=== PATIENT | male | born 1965 | race Hispanic/Latino ===

== ENCOUNTER 2019-12-06 14:44 | Outpatient (CLI) | payer OTHER ==
[2019-12-06 15:16] LABS: #Basophils 0.1 thou/uL (0.0-0.2); #Eosinphils 0.7 thou/uL (0.0-0.7); #Monocytes 0.5 thou/uL (0.11-0.59); #Neutrophils 4.1 thou/uL (1.40-6.50); %Basophils 1.2 % (0.0-1.0); %Eosinophils 8.9 % (0.0-10.0); %Lymphocytes 27.3 % (21.0-51.0); %Monocytes 7.1 % (0.0-10.0); %Neutrophils 55.5 % (42.0-75.0); Hemoglobin 15.4 g/dL (14.0-18.0); Mean Corpuscular HGB CONC 34.8 g/dL (32.0-36.0); Mean Corpuscular Hemoglobin 30.1 pg (27.0-31.0); Mean Corpuscular Volume 86.6 fL (78.0-98.0); Mean Platelet Volume 8.8 fL (7.4-10.4); Platelet Count 218 thou/uL (130-400); RBC Distribution Width 11.9 % (11.5-14.5); White Blood Cell (WBC) Count 7.4 thou/uL (4.8-10.8)
[2019-12-06 15:53] LABS: ALT (SGPT) 28 U/L (8-55); AST (SGOT) 17 U/L (5-34); Albumin 4.6 g/dL (3.5-5.0); Alkaline Phosphatase 105 U/L (40-110); Anion Gap 12 mmol/L (10-20); BUN (Urea Nitrogen) 17 mg/dL (8.4-25.7); Bilirubin, Total 0.8 mg/dL (0.2-1.2); Calc. Creatinine Clearance 0 mL/min (70-130); Calcium 9.8 mg/dL (7.8-10.44); Carbon Dioxide 28 mmol/L (22-29); Chloride 101 mmol/L (98-107); Estimated GFR-MDRD 65; Globulin 3.2 g/dL (2.4-3.5); Glucose 136 mg/dL (70-105); Protein, Total 7.8 g/dL (6.0-8.3); Sodium 137 mmol/L (136-145)
== END 2019-12-06 14:45 | disposition home or self-care (01) ==
LOC: LABBT 14:44
PROVIDERS: ATTEND Internal Medicine Cardiovascular Disease
DX: Z01.812 Encounter for preprocedural laboratory examination (principal); I42.9 Cardiomyopathy, unspecified; I21.9 Acute myocardial infarction, unspecified
CPT/HCPCS: 80053; 85025

== ENCOUNTER 2019-12-07 05:53 | Inpatient (IN) | payer OTHER ==
[2019-12-06 15:21] VITALS: BMI 32.7
[2019-12-07] MEDS ORDERED: Heparin 10,000 UNITS/1 ML VIAL ONE (06:31)
[2019-12-07] MEDS ORDERED: Fentanyl 100 MCG/2 ML VIAL ONE (07:01)
[2019-12-07] MEDS ORDERED: Midazolam HCl 2 mg/2 ml Vial ONE (07:01)
[2019-12-07] MEDS ORDERED: Protamine Sulfate 50 MG/5 ML VIAL ONE (07:22)
[2019-12-07] MEDS ORDERED: EPINEPHrine 1 MG/ML AMP ONE (07:40)
[2019-12-07] MEDS ORDERED: Albumin 5% 500 ML ONE (07:40)
[2019-12-07] MEDS ORDERED: Dexamethasone 4 mg/ml Vial ONE (07:40)
[2019-12-07] MEDS ORDERED: Bupivacaine PF 0.5% 30 ML VIAL ONE (07:40)
[2019-12-07] MEDS ORDERED: Communication Order-Pharmacy FS SCH (07:57)
[2019-12-07] MEDS ORDERED: Heparin 10,000 UNITS/1 ML VIAL 30,000 UNITS in Sodium Chloride 0.9% 1,000 ML FS SCH (08:00)
[2019-12-07] MEDS ORDERED: Midazolam HCl 5 mg/5 ml Vial ONE (08:29)
[2019-12-07] MEDS ORDERED: Fentanyl 250 MCG/5 ML VIAL ONE ×2 (08:29)
--- NOTE | 2019-12-07 08:29 | CON ---
DATE OF CONSULTATION: HISTORY OF PRESENT ILLNESS: Mr. Baez is a 54-year-old gentleman, who works as a nurse technician, who initially presented to Dr. Arteaga on November 17 with a history of longstanding chest pain. He had an echocardiogram performed at that time, showed an ejection fraction of 30%. He was started on multiple new medicines. He is diabetic and takes metformin. He was started on lisinopril, statin, carvedilol, and an aspirin at that time. He also was given a LifeVest. He was followed up on 11/29 and had recommendations made for cardiac catheterization, which he underwent today. This shows severe multifocal 3-vessel disease. Potential bypassable targets included LAD, diagonal, ramus and PDA. His OM system is unbypassable. His EKG shows old anterior infarct ST-elevation anteriorly, Q-waves anteriorly and inferiorly. PAST MEDICAL HISTORY: 1. Hypertension. 2. Dyslipidemia. 3. Diabetes mellitus. 4. Coronary artery disease. 5. Status post myocardial infarction. PAST SURGICAL HISTORY: Hernia surgery in 2007. ALLERGIES: NONE. CURRENT MEDICATIONS: 1. Aspirin 81 mg daily. 2. Lasix 40 mg daily. 3. Coreg 3.125 mg b.i.d. 4. Lisinopril 20 mg daily. 5. Atorvastatin 40 mg at bedtime. 6. Metformin 850 mg b.i.d. 7. Glipizide ER 2.5 mg daily. SOCIAL HISTORY: He works as a nurse technician. He does not use tobacco. 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 VITAL SIGNS: His heart rate is 80, blood pressure is 132/44, and oxygen saturation is 96% on room air. HEENT: Sclerae nonicteric. Pupils equal and round bilaterally. NECK: Supple without bruit. CHEST: Clear bilaterally. HEART: Rhythm is regular. ABDOMEN: Soft and nontender. EXTREMITIES: No edema. ASSESSMENT AND PLAN: For emergency coronary artery bypass grafting, risks, benefits and options have been discussed with him through an workforce services representative. Plan forsurgery as soon as OR is ready. Job ID: [id number]
[2019-12-07 08:31] LABS: Hemoglobin A1c 9.4 % (4.0-6.0)
[2019-12-07] MEDS ORDERED: Norepinephrine 4 MG/4 ML VIAL ONE ×2 (08:40→08:41)
[2019-12-07] MEDS ORDERED: Nitroglycerin 50 MG/250 ML BOT 250 ML ONE (08:41)
--- NOTE | 2019-12-07 08:46 | RAD ---
FRONTAL RADIOGRAPH CHEST: Date: 12/07/2019 HISTORY: Evaluate chest prior to open heart surgery. FINDINGS: Supine imaging limits assessment for pneumothorax and pleural fluid. No focal consolidation or alveol ar edema. IMPRESSION: No acute findings. POS: NUSRAT
[2019-12-07] MEDS ORDERED: Sodium Chloride 0.9% 20 ML ONE (08:53)
[2019-12-07] MEDS ORDERED: Rocuronium Bromide 10 MG/ML (10ML VIAL) ONE (09:13)
[2019-12-07] MEDS ORDERED: Calcium Chloride 1 GM/10 ML Abboject SYRINGE ONE (09:13)
[2019-12-07] MEDS ORDERED: Heparin 30,000 units/30 ml VIAL ONE (09:13)
[2019-12-07] MEDS ORDERED: Cardioplegic Soln 1,000 ML BAG ONE (09:13)
[2019-12-07] MEDS ORDERED: Magnesium Sulfate 1 GM/2 ML VIAL ONE (09:13)
[2019-12-07] MEDS ORDERED: PROPOFOL 200 MG/20 ML VIAL ONE (09:13)
[2019-12-07] MEDS ORDERED: Lidocaine 2% PF 5 ML VIAL ONE (09:13)
[2019-12-07] MEDS ORDERED: Aminocaproic Acid 5 GM/20 ML VIAL ONE (09:13)
[2019-12-07] MEDS ORDERED: Succinylcholine Chloride 20 MG/ML 10 ml SYRINGE FS ONE (09:13)
[2019-12-07] MEDS ORDERED: Papaverine 60 MG/2 ML VIAL ONE (09:13)
[2019-12-07] MEDS ORDERED: Sodium Bicarb 50 MEQ/50 ML Abboject 8.4% SYRINGE ONE (09:13)
[2019-12-07] MEDS ORDERED: Potassium Chloride 60 MEQ/30 ML VIAL ONE (09:13)
[2019-12-07] MEDS ORDERED: Heparin 5,000 UNITS/ML VIAL ONE (09:13)
[2019-12-07] MEDS ORDERED: Protamine Sulfate 250 MG/25 ML VIAL ONE (09:13)
[2019-12-07] MEDS ORDERED: Thrombin 5000 UNITS/5 ML VIAL ONE (09:13)
[2019-12-07] MEDS ORDERED: Vecuronium 10 MG VIAL ONE (09:13)
[2019-12-07] MEDS ORDERED: Insulin Regular 300 UNITS/3 ML VIAL ONE (09:19)
[2019-12-07] MEDS ORDERED: PHENYLEPHRINE-NS 100 MCG/ML 10 ML SYRINGE ONE ×2 (10:56→12:22)
[2019-12-07] MEDS ORDERED: Milrinone 10 MG/10 ML VIAL ONE (11:07)
[2019-12-07] MEDS ORDERED: Ketamine 50 MG/ML (10ML VIAL) ONE (12:22)
[2019-12-07] MEDS ORDERED: Ondansetron PF 4 MG/2 ML Vial IVP PRN (12:39)
[2019-12-07] MEDS ORDERED: Fentanyl 100 MCG/2 ML VIAL SLOW IVP PRN (12:39)
[2019-12-07] MEDS ORDERED: Hetastarch 6% 500 ML 500 ML IVPB PRN (12:39)
[2019-12-07] MEDS ORDERED: Guaifenesin DM 100-10/5 ML UDCUP PO PRN (12:39)
[2019-12-07] MEDS ORDERED: Bisacodyl 5 MG TAB PO PRN (12:39)
[2019-12-07] MEDS ORDERED: Morphine 2 MG/ML SYRINGE SLOW IVP PRN (12:39)
[2019-12-07] MEDS ORDERED: Norepinephrine 8 MG in Dextrose 5% in Water 242 ML IVPB PRN (12:39)
[2019-12-07] MEDS ORDERED: Post-Op Insulin Drip Protocol IVPB ONE (12:39)
[2019-12-07] MEDS ORDERED: Acetaminophen 325 MG TAB PO PRN (12:39)
[2019-12-07] MEDS ORDERED: Mag-Al 1200 mg/1200 mg/30 ML UDCUP PO PRN (12:39)
[2019-12-07] MEDS ORDERED: Bisacodyl 10 MG SUPP PR PRN (12:39)
[2019-12-07] MEDS ORDERED: Promethazine HCl 25 MG/ML VIAL IM PRN (12:39)
[2019-12-07] MEDS ORDERED: traMADol HCl 50 MG TAB PO PRN ×2 (12:39)
[2019-12-07] MEDS ORDERED: hydrALAZINE 20 MG/ML VIAL SLOW IVP PRN (12:39)
[2019-12-07] MEDS ORDERED: D5 1/2 NS w/20 mEq KCL 1,000 ML IV SCH (12:39)
[2019-12-07] MEDS ORDERED: Magnesium 2 GM/50 ML 2 GM in Premix Bag 1 BAG IVPB SCH (12:39)
[2019-12-07] MEDS ORDERED: Nitroglycerin 50 MG/250 ML BOT 250 ML IVPB PRN (12:39)
[2019-12-07] MEDS ORDERED: Dextrose 50% Abboject 50 ML SYRINGE SLOW IVP PRN (12:56)
[2019-12-07] MEDS ORDERED: Dextrose 5% in Water 1,000 ML IV PRN (12:56)
[2019-12-07] MEDS ORDERED: HUMULIN R 100 UNITS in Sodium Chloride 0.9% 100 ML IVPB SCH (12:56)
[2019-12-07] MEDS ORDERED: Insulin Regular 300 UNITS/3 ML VIAL SC PRN (12:56)
[2019-12-07 13:07] LABS: #Eosinphils 0.7 thou/uL (0.0-0.7); #Lymphocytes 2.1 thou/uL (1.20-3.40); #Monocytes 0.8 thou/uL (0.11-0.59); #Neutrophils 10.6 thou/uL (1.40-6.50); %Basophils 0.2 % (0.0-1.0); %Eosinophils 4.6 % (0.0-10.0); %Lymphocytes 14.7 % (21.0-51.0); %Monocytes 5.7 % (0.0-10.0); %Neutrophils 74.7 % (42.0-75.0); Hemoglobin 12.4 g/dL (14.0-18.0); Mean Corpuscular HGB CONC 35.1 g/dL (32.0-36.0); Mean Corpuscular Hemoglobin 30.3 pg (27.0-31.0); Mean Corpuscular Volume 86.2 fL (78.0-98.0); Mean Platelet Volume 8.7 fL (7.4-10.4); Platelet Count 144 thou/uL (130-400); RBC Distribution Width 11.8 % (11.5-14.5); Red Blood Cell (RBC) Count 4.09 mill/uL (4.70-6.10); White Blood Cell (WBC) Count 14.2 thou/uL (4.8-10.8)
[2019-12-07 13:13] LABS: INR-International Normal Ratio 1.2; PTT 32.6 SEC (22.9-36.1)
--- NOTE | 2019-12-07 13:24 | OP ---
DATE OF PROCEDURE: 12/07/2019 PREOPERATIVE DIAGNOSES: Coronary artery disease/status post remote myocardial infarction/diabetes mellitus/hypertension/dyslipidemia/depressed left ventricular ejection fraction. POSTOPERATIVE DIAGNOSES: Coronary artery disease/status post remote myocardial infarction/diabetes mellitus/hypertension/dyslipidemia/depressed left ventricular ejection fraction. PROCEDURES PERFORMED: 1. Coronary artery bypass grafting under emergency fashion x5: a. Left internal mammary artery in sequence to 1.25 mm D1 and 1.25 mm distal LAD-good conduit, small diffusely diseased target. b. Reverse saphenous vein to 1.5 mm PDA-good conduit, small target. c. Reverse saphenous vein to 1.25 mm OM1 in sequence to 1.25 mm OM2-good conduit, small target. GRADUATE ADVISOR: Dr. Orlin Pinzon. ANESTHESIA: General endotracheal - Dr. Titi Bueno. PUMP TIME: 74 minutes. CROSSCLAMP TIME: 48 minutes. LOW CORE TEMPERATURE: 34 degrees Celsius. REINSURANCE CLAIM ANALYST: Onelia Alejo. DRAINS: 24-Citizen Of [place] chest tubes x2. DRIPS: Norepinephrine at 0.2. TRANSFUSIONS: None. DESCRIPTION OF PROCEDURE: After operative consent was obtained, the patient was brought to the operating room and placed in supine position on the operating room table. Appropriate central line and monitors were placed, and general endotracheal anesthesia was induced. Chest, abdomen, and legs were prepped and draped in usual sterile fashion. Greater saphenous vein was harvested from the left leg from groin to mid calf utilizing an endoscopic technique. Wound was irrigated and closed in layers. Median sternotomy was performed. Left internal mammary artery was harvested as a pedicle graft. The patient was systemically heparinized. Distal pedicle was divided and infused with papaverine. Thymic fat and pericardium were divided with electrocautery. Pericardial stay sutures were placed. Aortic and atrial cannulation was performed. After adequate heparinization, retrograde prime was performed. The patient was placed on cardiopulmonary bypass. Distal targets were marked. Aortic cross-clamp was applied and antegrade sanguineous cardioplegic arrest was obtained. 1 L of antegrade cold [place] cardioplegia was given. Topical cold solution was used. Reverse saphenous vein was anastomosed to PDA in end-to-side fashion with running 7-0 Prolene suture. Anastomosis was tested and was hemostatic. Reverse saphenous vein was anastomosed in a [id number] fashion with OM1 and end-to-side fashion with OM2. Anastomoses were inspected for hemostasis. Mammary artery was brought through a window in the pericardium and anastomosed to D1 [id number] fashion and distal LAD in end-to-side fashion. On release of mammary clamps, good hooding anastomosis and good distal flow. Pedicle was secured with interrupted 6-0 Prolene suture. Cross-clamp was removed and partial occluding clamp placed. Saphenous veins were anastomosed to individual punch sites in the aorta with running 6-0 Prolene suture. Partial occluding clamp was removed and graft was deaired. Anastomoses were inspected for hemostasis, which was good. The patient was warmed and weaned from cardiopulmonary bypass. After resumption of sinus rhythm, good hemodynamics, temperature greater than 36.5, bypass was discontinued. Transfusion was given. Protamine was administered. Decannulation performed, and pursestring suture secured. 24-Citizen Of [place] chest tubes x2 were placed in the mediastinum. Vancomycin paste was placed on the edge of the sternum. After adequate hemostasis had been obtained, sternum was closed with #7 wire. Sternum was treated with platelet rich plasma and wires were twisted and buried. Peristernal block was performed with 0.5% Marcaine, mixed with Decadron. Wounds were then irrigated, treated with platelet-poor plasma and closed in multiple layers. Needle, sponge, and instrument counts were all reported as correct at the end of the procedure. The patient tolerated the procedure well and was transferred to the intensive care unit in stable, but critical condition. Job ID: [id number]
[2019-12-07 13:29] LABS: Anion Gap 9 mmol/L (10-20); BUN (Urea Nitrogen) 15 mg/dL (8.4-25.7); Calc. Creatinine Clearance 149 mL/min (70-130); Calcium 7.4 mg/dL (7.8-10.44); Carbon Dioxide 23 mmol/L (22-29); Chloride 110 mmol/L (98-107); Estimated GFR-MDRD Greater than 90; Glucose 81 mg/dL (70-105); Potassium 3.5 mmol/L (3.5-5.1); Sodium 138 mmol/L (136-145)
--- NOTE | 2019-12-07 13:29 | RAD ---
CHEST 1 VIEW: Date: 12/07/2019 HISTORY: Open heart surgery. COMPARISON: Chest radiograph same date. FINDINGS: Patient is intubated. Endotracheal tube the patient below level of clavicles, in good position. Small volume pneumomediastinum, expected. Right subclavian central venous catheter tip sits over the right atrium. Mediastinal drains are prese nt. Small left effusion and left lower lobe atelectatic changes. IMPRESSION: Satisfactory postoperative appearance. POS: HOME
[2019-12-07 13:35] LABS: Actual Bicarbonate (HCO3a) 22.9 mEq/L (22-28); Base Excess (BEa) -1.1 mEq/L (-2.0 to +3.0); CO2 Tension 35.9 mmHg (35.0-45.0); Calcium, Ionized 1.07 mmol/L (1.12-1.30); Carboxyhemoglobin (COHb) 0.5 gm% (0.0-3.0); Hemoglobin (Hb) 12.7 g/dL (14.0-18.0); Potassium - ABG Lab 3.63 mmol/L (3.70-5.30); pH, Arterial 7.42 (7.35-7.45)
[2019-12-07 13:36] LABS: ALV-art Gradient 131.325 (0-20); Puncture Site ALINE
[2019-12-07] MEDS: Potassium Chloride 20 MEQ/100 ML PREMIX BAG IVPB PRN (13:56)
[2019-12-07] MEDS: CEFAZOLIN 2 GM in Premix Bag 1 BAG IVPB SCH ×2 (16:29→23:07)
[2019-12-07 17:20] LABS: Actual Bicarbonate (HCO3a) 20.4 mEq/L (22-28); Base Excess (BEa) -4.6 mEq/L (-2.0 to +3.0); CO2 Tension 37.7 mmHg (35.0-45.0); Carboxyhemoglobin (COHb) 0.6 gm% (0.0-3.0); Hemoglobin (Hb) 12.7 g/dL (14.0-18.0); O2 Tension (PaO2) 119.1 mmHg (80.0-100.0); Potassium - ABG Lab 4.09 mmol/L (3.70-5.30); pH, Arterial 7.35 (7.35-7.45)
[2019-12-07 17:27] LABS: Puncture Site ALINE
[2019-12-07 17:28] LABS: ALV-art Gradient 118.975 (0-20)
[2019-12-07] MEDS: Ketorolac Tromethamine 30 MG/ML VIAL IVP SCH ×2 (17:43→23:07)
[2019-12-07 19:04] LABS: Hemoglobin 12.7 g/dL (14.0-18.0)
[2019-12-07 19:21] LABS: Potassium 4.1 mmol/L (3.5-5.1)
[2019-12-07] MEDS ORDERED: Atorvastatin Calcium 20 MG TAB PO SCH (21:00)
[2019-12-07] MEDS ORDERED: Famotidine/PF 20 mg/2ml Vial SLOW IVP SCH (21:00)
[2019-12-08] MEDS: Fentanyl 100 MCG/2 ML VIAL SLOW IVP PRN ×2 (00:41→05:23)
[2019-12-08 04:49] LABS: #Lymphocytes 0.7 thou/uL (1.20-3.40); #Monocytes 0.8 thou/uL (0.11-0.59); #Neutrophils 8.5 thou/uL (1.40-6.50); %Basophils 0.1 % (0.0-1.0); %Lymphocytes 7.4 % (21.0-51.0); %Monocytes 7.7 % (0.0-10.0); %Neutrophils 84.8 % (42.0-75.0); Hemoglobin 10.8 g/dL (14.0-18.0); Mean Corpuscular Hemoglobin 32.6 pg (27.0-31.0); Mean Platelet Volume 9.3 fL (7.4-10.4); Platelet Count 146 thou/uL (130-400); RBC Distribution Width 11.9 % (11.5-14.5)
[2019-12-08 05:08] LABS: Anion Gap 8 mmol/L (10-20); BUN (Urea Nitrogen) 12 mg/dL (8.4-25.7); Calc. Creatinine Clearance 149 mL/min (70-130); Calcium 7.6 mg/dL (7.8-10.44); Carbon Dioxide 24 mmol/L (22-29); Chloride 112 mmol/L (98-107); Estimated GFR-MDRD Greater than 90; Glucose 126 mg/dL (70-105); Potassium 3.9 mmol/L (3.5-5.1); Sodium 140 mmol/L (136-145)
[2019-12-08] MEDS: Ketorolac Tromethamine 30 MG/ML VIAL IVP SCH ×4 (05:22→23:58)
[2019-12-08] MEDS: Potassium Chloride 20 MEQ/100 ML PREMIX BAG IVPB PRN (06:03)
[2019-12-08] MEDS ORDERED: Dextrose 5% in Water 1,000 ML IV PRN (07:02)
[2019-12-08] MEDS ORDERED: HumaLOG 300 UNITS/3 ML VIAL SC PRN (07:02)
[2019-12-08] MEDS ORDERED: Dextrose 50% Abboject 50 ML SYRINGE SLOW IVP PRN (07:02)
[2019-12-08] MEDS: Potassium Chloride 10 MEQ TAB PO SCH (07:47)
[2019-12-08] MEDS: CEFAZOLIN 2 GM in Premix Bag 1 BAG IVPB SCH (07:48)
--- NOTE | 2019-12-08 08:08 | RAD ---
SINGLE VIEW CHEST: Date: 12/08/2019 COMPARISON: 12/07/2019. HISTORY: Status post open heart surgery. FINDINGS: Single view of the chest shows an enlarged but stable cardiomediastinal silhouette. The patient is st atus post sternotomy. The endotracheal tube has been removed. The central venous catheter is unchange d in position. There is obscuring of the left hemidiaphragm which may represent atelectasis and/or a pleural effusion in the left lung base. IMPRESSION: Stable left pleural effusion with adjacent atelectasis. POS: MATHEWA
[2019-12-08] MEDS: Furosemide 40 MG TAB PO SCH (08:40)
[2019-12-08] MEDS: Magnesium 2 GM/50 ML 2 GM in Premix Bag 1 BAG IVPB SCH (08:41)
[2019-12-08] MEDS ORDERED: Aspirin 325 MG TAB PO SCH (09:00)
[2019-12-08] MEDS ORDERED: diphenhydrAMINE 25 MG CAP PO PRN (15:37)
[2019-12-08] MEDS ORDERED: Milk Of Magnesia 30 ML UDCUP PO PRN (15:37)
[2019-12-08] MEDS ORDERED: Artificial Tears 18 DROP/0.9 ML EA EYE PRN (15:37)
[2019-12-08] MEDS ORDERED: Bisacodyl 10 MG SUPP PR PRN (15:37)
[2019-12-08] MEDS ORDERED: Zolpidem Tartrate 5 MG TAB PO PRN (15:37)
[2019-12-08] MEDS ORDERED: Mineral Oil ENEMA PR PRN (15:37)
[2019-12-08] MEDS ORDERED: Guaifenesin DM 100-10/5 ML UDCUP PO PRN (15:37)
[2019-12-08] MEDS ORDERED: Bisacodyl 5 MG TAB PO PRN (15:37)
[2019-12-08] MEDS ORDERED: Nitroglycerin 0.4 MG TAB (25 Tab Bottle) SL PRN (15:37)
[2019-12-08] MEDS ORDERED: Mag-Al 1200 mg/1200 mg/30 ML UDCUP PO PRN (15:37)
[2019-12-08] MEDS: Atorvastatin Calcium 20 MG TAB PO SCH (20:56)
[2019-12-09] MEDS: Ketorolac Tromethamine 30 MG/ML VIAL IVP SCH ×3 (05:22→17:25)
[2019-12-09] MEDS: Aspirin 325 mg Enteric Coated Tablet PO SCH (09:52)
[2019-12-09] MEDS: Carvedilol 3.125 MG TAB PO SCH ×2 (09:53→17:25)
[2019-12-09] MEDS: Furosemide 40 MG TAB PO SCH (09:53)
[2019-12-09] MEDS: Potassium Chloride 10 MEQ TAB PO SCH (09:53)
[2019-12-09] MEDS: Magnesium 2 GM/50 ML 2 GM in Premix Bag 1 BAG IVPB SCH (09:54)
[2019-12-09] MEDS: Atorvastatin Calcium 20 MG TAB PO SCH (21:53)
[2019-12-10] MEDS: Ketorolac Tromethamine 30 MG/ML VIAL IVP SCH ×2 (01:15→05:33)
--- NOTE | 2019-12-10 07:15 | DIS ---
DATE OF ADMISSION: 12/07/2019 DATE OF DISCHARGE: 12/10/2019 DIAGNOSES: 1. Coronary artery disease. 2. Diabetes mellitus. 3. Hypertension. 4. Congestive heart failure. 5. Dyslipidemia. 6. Status post remote myocardial infarction. PROCEDURES: 1. Cardiac catheterization. 2. Coronary artery bypass grafting x5-1 left internal mammary artery in sequence to D1 and LAD. 3. Reverse saphenous vein to PDA. 4. Reverse saphenous vein in sequence to OM1 and OM2. DESCRIPTION OF HOSPITAL STAY: Mr. Baez is a 54-year-old gentleman who was brought in for catheterization with history of continued chest pain and depressed left ventricular ejection fraction. He underwent heart catheterization revealing critical three-vessel disease. He was taken for urgent coronary bypass grafting from the denture laboratory technician. Postoperatively, he has done remarkably well. He is currently ambulatory tolerating regular diet, having good bowel and bladder function. Incisions are clean, dry without evidence of infection. DISCHARGE MEDICATIONS: Include; 1. Aspirin 81 mg daily. 2. Lipitor 80 mg at bedtime. 3. Coreg 3.125 mg b.i.d. 4. Lasix 20 mg daily. 5. Glipizide 2.5 mg daily. 6. Metformin 850 mg b.i.d. 7. q.6 hours p.r.n. pain. DISCHARGE FOLLOWUP: Follow up is with me in 2 weeks, Dr. Arteaga in a month, and his primary care doctor as his usual schedule. Job ID: [id number]
[2019-12-10 07:39] VITALS: BP 119/79; TEMP 98.5
[2019-12-10] MEDS: Potassium Chloride 10 MEQ TAB PO SCH (08:15)
[2019-12-10] MEDS: Carvedilol 3.125 MG TAB PO SCH (08:15)
[2019-12-10] MEDS: Furosemide 40 MG TAB PO SCH (08:15)
[2019-12-10] MEDS: Aspirin 325 mg Enteric Coated Tablet PO SCH (08:15)
--- NOTE | 2019-12-13 22:36 | PQF ---
Cesar Baez CHARLES H MD [id number] CLINICAL DOCUMENTATION CLARIFICATION FORM: POST DISCHARGE Addendum to original discharge summary date: ____ Late entry note date: __ DATE: 12/13/2019 ATTN:MARY GLASS MD Please exercise your independent, professional judgment in responding to the clarification form. Clinical indicators are provided on the bottom of this form for your review Please check appropriate box(s): HEART FAILURE: A. TYPE: [ ] Systolic / HFrEF [ ] Diastolic / HFpEF [ ] Combined Systolic / Diastolic B. ACUITY [ ] Acute [ ] Acute on Chronic [ ] Chronic [ ] Other diagnosis [ ] Unable to determine In addition, please specify: Present on Admission (POA): [ ] Yes [ ] No [ ] Unable to determine For continuity of documentation, please document condition throughout progress notes and discharge summary. Thank You. CLINICAL INDICATORS - SIGNS / SYMPTOMS / LABS - Congestive heart failure- DS, 12/09, MARY GLASS MD - Continued chest pain and depressed left ventricular ejection fraction- DS, , MARY GLASS MD - Small left effusion and left lower atelectatic changes- Chest X ray- 12/06, [place] - Ischemic cardiomyopathy, probable EF 30-35%-Scanned , 11/29 RISKS: - Hypertension- DS, 12/09, MARY GLASS MD - CAD- DS, 12/09, MARY GLASS MD - status post remote myocardial infarction- DS, 12/09, MARY GLASS MD - CABG - OP report, 12/06 TREATMENTS: - Furosemide.PO- MAR, 12/07 to 12/09 -Carvedilol.PO- - MAR, 12/08 to 12/09 [employer] (This form is maintained as a part of the permanent medical record) 2014 [employer]. All Rights Reserved Silvio CHRISTINE
[2019-12-15 10:28] LABS: Actual Bicarbonate (HCO3a) 18.6 mEq/L (22-28); Analyzer IN Cardio OR; Base Excess (BEa) -5.5 mEq/L (-2.0 to +3.0); CO2 Tension 32.3 mmHg (35.0-45.0); Calcium, Ionized 1.07 mmol/L (1.12-1.30); Carboxyhemoglobin (COHb) 0.2 gm% (0.0-3.0); Hemoglobin (Hb) 13.4 g/dL (14.0-18.0); O2 Tension (PaO2) 291.1 mmHg (80.0-100.0); Potassium - ABG Lab 4.27 mmol/L (3.70-5.30); pH, Arterial 7.38 (7.35-7.45)
[2019-12-15 10:28] LABS: Actual Bicarbonate (HCO3a) 20.7 mEq/L (22-28); Analyzer IN Cardio OR; Base Excess (BEa) -4.6 mEq/L (-2.0 to +3.0); CO2 Tension 39.3 mmHg (35.0-45.0); Calcium, Ionized 1.04 mmol/L (1.12-1.30); Carboxyhemoglobin (COHb) 0.3 gm% (0.0-3.0); Hemoglobin (Hb) 10.8 g/dL (14.0-18.0); pH, Arterial 7.34 (7.35-7.45)
[2019-12-15 10:28] LABS: Actual Bicarbonate (HCO3a) 18.6 mEq/L (22-28); Analyzer IN Cardio OR; Base Excess (BEa) -4.9 mEq/L (-2.0 to +3.0); CO2 Tension 30.1 mmHg (35.0-45.0); Calcium, Ionized 1.08 mmol/L (1.12-1.30); Carboxyhemoglobin (COHb) 0.1 gm% (0.0-3.0); Hemoglobin (Hb) 13.4 g/dL (14.0-18.0); O2 Tension (PaO2) 379.5 mmHg (80.0-100.0); Potassium - ABG Lab 4.36 mmol/L (3.70-5.30); pH, Arterial 7.41 (7.35-7.45)
[2019-12-15 10:29] LABS: Actual Bicarbonate (HCO3v) 23 mEq/L (22-28); Analyzer IN Cardio OR; Base Excess -2.8 mEq/L (-2.0 to +3.0); Calcium, Ionized 1.04 mmol/L (1.16-1.32); Chloride (ABG LAB) 106 mmol/L (98-106); Hemoglobin (Hb) 10.8 g/dL (13.1-17.2); Potassium - ABG Lab 4.74 mmol/L (3.70-5.30); pH (venous) 7.33 (7.32-7.43)
[2019-12-15 10:30] LABS: Analyzer IN Cardio OR; Base Excess (BEa) -0.7 mEq/L (-2.0 to +3.0); CO2 Tension 45.5 mmHg (35.0-45.0); Calcium, Ionized 1.02 mmol/L (1.12-1.30); Carboxyhemoglobin (COHb) 0.3 gm% (0.0-3.0); Hemoglobin (Hb) 10.3 g/dL (14.0-18.0); O2 Tension (PaO2) 342.1 mmHg (80.0-100.0); Potassium - ABG Lab 4.27 mmol/L (3.70-5.30); pH, Arterial 7.36 (7.35-7.45)
[2019-12-15 10:30] LABS: Actual Bicarbonate (HCO3a) 21.9 mEq/L (22-28); Analyzer IN Cardio OR; Base Excess (BEa) -1.5 mEq/L (-2.0 to +3.0); CO2 Tension 32.5 mmHg (35.0-45.0); Calcium, Ionized 1.06 mmol/L (1.12-1.30); Carboxyhemoglobin (COHb) 0.2 gm% (0.0-3.0); Hemoglobin (Hb) 12.2 g/dL (14.0-18.0); O2 Tension (PaO2) 330.6 mmHg (80.0-100.0); Potassium - ABG Lab 3.43 mmol/L (3.70-5.30); pH, Arterial 7.45 (7.35-7.45)
[2019-12-15 10:31] LABS: Puncture Site ALINE
[2019-12-15 10:31] LABS: Puncture Site ALINE
[2019-12-15 10:31] LABS: Puncture Site ALINE
[2019-12-15 10:32] LABS: Puncture Site ALINE
[2019-12-15 10:32] LABS: Puncture Site ALINE
--- NOTE | 2019-12-16 07:33 | EKG ---
Test Reason : POST CABG Blood Pressure : / mmHG Vent. Rate : 089 BPM Atrial Rate : 089 BPM P-R Int : 170 ms QRS Dur : 106 ms QT Int : 406 ms P-R-T Axes : 043 080 093 degrees QTc Int : 493 ms Normal sinus rhythm Incomplete right bundle branch block Possible Inferior infarct , age undetermined Abnormal ECG No previous ECGs available Confirmed by IRENE KENNEDY MD ([id number]) on 12/16/2019 7:33:21 AM Referred By: Melanie GLASS Confirmed By:IRENE KENNEDY MD
== END 2019-12-10 11:54 | disposition home or self-care (01) | DRG 234 ==
LOC: CCL 05:53 → CCU 10:39 → 2NO 12-08 17:05
PROVIDERS: ADMIT Thoracic Surgery (Cardiothoracic Vascular Surgery); ATTEND Internal Medicine Cardiovascular Disease
PROC: 4A023N7 Measurement of Cardiac Sampling and Pressure, Left Heart, Percutaneous Approach (ICD-10-PCS; principal; 2019-12-07)
PROC: 02100Z9 Bypass Coronary Artery, One Artery from Left Internal Mammary, Open Approach (ICD-10-PCS; 2019-12-07)
PROC: 021309W Bypass Coronary Artery, Four or More Arteries from Aorta with Autologous Venous Tissue, Open Approach (ICD-10-PCS; 2019-12-07)
PROC: 06BQ4ZZ Excision of Left Saphenous Vein, Percutaneous Endoscopic Approach (ICD-10-PCS; 2019-12-07)
PROC: B2111ZZ Fluoroscopy of Multiple Coronary Arteries using Low Osmolar Contrast (ICD-10-PCS; 2019-12-07)
PROC: B2151ZZ Fluoroscopy of Left Heart using Low Osmolar Contrast (ICD-10-PCS; 2019-12-07)
PROC: 5A1221Z Performance of Cardiac Output, Continuous (ICD-10-PCS; 2019-12-07)
DX: I25.10 Atherosclerotic heart disease of native coronary artery without angina pectoris (principal); I25.5 Ischemic cardiomyopathy; E11.9 Type 2 diabetes mellitus without complications; I11.0 Hypertensive heart disease with heart failure; I50.9 Heart failure, unspecified; E78.5 Hyperlipidemia, unspecified; E66.9 Obesity, unspecified; I25.2 Old myocardial infarction
CPT/HCPCS: 36416; 36430; 71045; 80048; 82805; 83036; 85025; 85347; 85610; 85730; 86850; 86900; 86901; 93005; 93010; 93458; 93798; 94002; 94150; 99152; C1769; J0171; J0690; J1100; J1642; J1644; J1815; J1885; J2001; J2250; J2260; J2270; J2405; J2440; J2704; J2720; J3010; J3370; J3475; J3480; J3490; J7050; P9045; S0017; S0020; S0028